=== PATIENT | female | born 1965 | race Hispanic/Latino ===

== ENCOUNTER 2020-04-10 05:46 | Day surgery (SDC) | payer BC ==
[2020-04-02 10:29] LABS: BASOPHILS % (AUTO) 0.6 % (0.0-5.0); EOSINOPHILS % (AUTO) 1.1 % (0.0-8.0); HEMATOCRIT 41.5 % (36-48); LYMPHOCYTES % (AUTO) 28.3 % (21.0-51.0); MEAN CORPUSCULAR HEMOGLOBIN 28.2 pg (27.0-33.0); MEAN CORPUSCULAR HGB CONC 32.5 g/dL (32.0-36.0); MEAN CORPUSCULAR VOLUME 86.8 fL (79-99); MONOCYTES % (AUTO) 7.1 % (3.0-13.0); NEUTROPHILS % (AUTO) 62.4 % (40.0-77.0); PLATELET COUNT (AUTO) 196 K/uL (130-400); RED BLOOD CELL COUNT(AUTO) 4.78 MIL/uL (4.00-5.50); RED CELL DISTRIBUTION WIDTH 13.1 % (11.0-15.5); WHITE BLOOD COUNT (AUTO) 6.4 K/uL (4.8-10.8)
[2020-04-02 10:42] LABS: CREATININE 0.7 mg/dL (0.5-1.5); POTASSIUM 4.1 mmol/L (3.5-5.1)
[2020-04-09 09:11] VITALS: BP 135/68
[~2020-04-10] VITALS: Ht 160 cm; Wt 77.6 kg
[2020-04-10] VITALS (18 sets, daily range): BP systolic 102–144; BP diastolic 71–86
[~2020-04-10 05:46] MED LIST: LEVO50TA11 PO; ROSU20TA23 PO
[2020-04-10] MEDS ORDERED: LACTATED RINGERS 1000ML 1,000 ML IV ONE (07:15)
[2020-04-10] MEDS ORDERED: CEFAZOLIN SODIUM 1 GM VIAL ONE (07:30)
[2020-04-10] MEDS: LACTATED RINGERS 1000ML 1,000 ML IV SCH ×2 (08:10→10:10)
[2020-04-10] MEDS ORDERED: LIDOCAINE PF 2% 5ML ABBOJECT ONE (08:26)
[2020-04-10] MEDS ORDERED: ROCURONIUM 10MG/1ML SYR 10 MG/ML ML ONE (08:27)
[2020-04-10] MEDS ORDERED: PROPOFOL 10 MG/ML 20ML VIAL IV ONE (08:27)
[2020-04-10] MEDS ORDERED: FENTANYL CITRATE PF 50 MCG/1 ML 2ML VIAL ONE (08:27)
[2020-04-10] MEDS ORDERED: MIDAZOLAM HCL 1 MG/ML 2ML VIAL ONE (08:27)
[2020-04-10] MEDS ORDERED: ONDANSETRON HCL 4 MG/2 ML VIAL ONE (08:27)
[2020-04-10] MEDS ORDERED: NEOSTIGMINE 5MG/5ML SYR IV ONE (09:45)
[2020-04-10] MEDS ORDERED: GLYCOPYRROLATE 1 MG/5 ML SYRINGE ONE (09:45)
--- NOTE | 2020-04-10 11:50 | NUR ---
DISCHARGE WRITTEN AND VERBAL DISCHARGE INSTRUCTIONS PROVIDED TO PATIENT AND SPOUSE. NO NEW PRESCRIPTIONS GIVEN. VERBALIZED UNDERSTANDING. PATIENT STATES NO COMPLAINTS OF PAIN. LEFT ARM IN SLING- DRESSING CLEAN, DRY, AND INTACT. IV REMOVED- CATHETER INTACT. PATIENT DISCHARGED VIA WHEELCHAIR ACCOMPANIED BY SPOUSE TO PRIVATE VEHICLE.
== END 2020-04-10 11:55 ==
LOC: DAH 05:46
PROVIDERS: ATTEND Orthopaedic Surgery
DX: M75.122 Complete rotator cuff tear or rupture of left shoulder, not specified as traumatic (principal); M17.11 Unilateral primary osteoarthritis, right knee; E78.00 Pure hypercholesterolemia, unspecified; E03.9 Hypothyroidism, unspecified; E66.9 Obesity, unspecified; Z68.30 Body mass index [BMI] 30.0-30.9, adult; Z20.828 Contact with and (suspected) exposure to other viral communicable diseases; Z79.899 Other long term (current) drug therapy
CPT/HCPCS: 29826; 29827; 36415; 80048; 85025; 93005; A4215; A4216; A4221; A4222; A4223 ×3; A4452; A4565; A4606; A4649 ×4; A4663; C1713 ×2; C9803; J0690; J2001; J2250; J2405; J2704; J2710; J3010; J3490; J7120 ×2; U0003

== ENCOUNTER → 2021-08-04 | Outpatient (CLI) | payer BC | END | disposition home or self-care (01) | LOC: RAH 11:01 | PROVIDERS: ATTEND Orthopaedic Surgery | DX: M75.101 Unspecified rotator cuff tear or rupture of right shoulder, not specified as traumatic (principal); M19.011 Primary osteoarthritis, right shoulder; M65.811 Other synovitis and tenosynovitis, right shoulder | CPT/HCPCS: 73221 ==